=== PATIENT | male | born 1990 | race Caucasian/White ===

== ENCOUNTER 2019-12-24 15:29 | Emergency (ER) | payer SELFPAY ==
[~2019-12-24] VITALS: Ht 185.4 cm; Wt 71.1 kg
[2019-12-24 15:31] VITALS: BP 134/85
== END 2019-12-24 16:10 | disposition home or self-care (01) ==
LOC: ED 16:00
DX: K08.89 Other specified disorders of teeth and supporting structures (principal)
CPT/HCPCS: 99283